=== PATIENT | female | born 1945 | race Caucasian/White ===

== ENCOUNTER 2018-07-10 09:17 | Emergency (ER) | payer MEDICARE, OTHER ==
[2018-07-10 09:23] VITALS: BP 161/87
[2018-07-10] MEDS ORDERED: Ketorolac 30 MG/ML SDV IM ONE (10:11)
--- NOTE | 2018-07-10 11:43 | EDM.PDOC ---
ED HPI GENERAL MEDICAL PROBLEM - General Chief Complaint: Lower Extremity Injury/Pain Stated Complaint: right hip pain Time Seen by Provider: 07/10/18 10:02 Source of Information: Reports: Patient, Family History Limitations: Reports: No Limitations - History of Present Illness INITIAL COMMENTS - FREE TEXT/NARRATIVE: Villa is a 73 year old female who presents ambulatory to the ED with c/o right hip pain. She reports that starting last night, after rising from her chair, she has had worsening hip pain. She reports she had trouble standing up straight. She reports she initially thought it was her lower back, but as the night went on pain has localized more to her right hip. She does report she put ice on it through the night and this seemed to help some. Reports upon awakening this morning she had trouble walking on her right hip, prompting her ED presentation. She reports she did have lumbar fusion about 3-4 months ago. Has been doing well with that. SHe denies any numbness or tingling. Pain does radiate some to her low back. Rates pain 8/10. She reports she has taken ibuprofen, which did not help. Denies any loss of bowel or bladder control. Denies any injury to the area. 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 Right Hip Pain Score (Numeric/FACES): 8 - Related Data Allergies Allergy/AdvReac Type Severity Reaction Status Date / Time nickel Allergy Cannot Verified 07/10/18 09:18 Remember Penicillins Allergy Swelling Verified 07/10/18 09:18 Sulfa (Sulfonamide Allergy Syncope Verified 07/10/18 09:18 Antibiotics) Home Meds: Home Meds Levothyroxine [Synthroid] 50 mcg PO ACBRK 10/06/13 [History] DULoxetine [Cymbalta] 60 mg PO DAILY 08/14/15 [History] Acetaminophen/HYDROcodone [Hyde 325-5 MG] 1 - 2 tab PO Q6H #15 tablet 07/10/18 [Rx] Meloxicam 15 mg PO BEDTIME 07/10/18 [History] Past Medical History HEENT History: Reports: Cataract, Impaired Vision Cardiovascular History: Reports: High Cholesterol Other Gastrointestinal History: Woo's esophagus Endocrine/Metabolic History: Reports: Hypothyroidism - Past Surgical History HEENT Surgical History: Reports: Cataract Surgery GI Surgical History: Reports: Colonoscopy, Tavia Fundoplication Female Surgical History: Reports: Hysterectomy Neurological Surgical History: Reports: Laminectomy Musculoskeletal Surgical History: Reports: Other (See Below) Other Musculoskeletal Surgeries/Procedures:: back surgery Social & Family History - Family History Family Medical History: Noncontributory - Tobacco Use Smoking Status *Q: Former Smoker Used Tobacco, but Quit: Yes Month/Year Tobacco Last Used: 2011 - Caffeine Use Caffeine Use: Reports: Coffee - Recreational Drug Use Recreational Drug Use: No Review of Systems - Review of Systems Review Of Systems: ROS reveals no pertinent complaints other than HPI. ED EXAM, GENERAL - Physical Exam Exam: See Below Exam Limited By: No Limitations General Appearance: Alert, WD/WN, No Apparent Distress Eye Exam: Bilateral Eye: PERRL Peripheral Pulses: 2+: Dorsalis Pedis (L), Dorsalis Pedis (R) GI/Abdominal: Normal Bowel Sounds, Soft, Non-Tender, No Organomegaly, No Distention, No Abnormal Bruit, No Mass Back Exam: Normal Inspection, Full Range of Motion, Paraspinal Tenderness (L3-5) . No: Vertebral Tenderness Extremities: Normal Inspection, Normal Range of Motion, No Pedal Edema, Normal Capillary Refill, Leg Pain, Other (tenderness to right SI, lateral right hip, L3 -5). No: Joint Swelling, Maricarmen's Sign, Increased Warmth Neurological: Alert, Oriented, CN II-XII Intact, Normal Cognition, Normal Gait, No Motor/Sensory Deficits Psychiatric: Normal Affect, Normal Mood Skin Exam: Warm, Dry, Intact, Normal Color, No Rash. No: Ecchymosis Course - Vital Signs Last Recorded V/S: Last Vital Signs Temp 96.7 F 07/10/18 09:20 Pulse 74 07/10/18 09:20 Resp 18 07/10/18 09:20 BP 161/87 H 07/10/18 09:20 Pulse Ox 97 07/10/18 09:20 - Orders/Labs/Meds Meds: Medications Discontinued Medications Generic Name Dose Route Start Last Admin Trade Name Freq PRN Reason Stop Dose Admin Ketorolac Tromethamine 30 mg 07/10/18 10:11 07/10/18 10:31 Toradol IM 07/10/18 10:12 30 mg ONETIME ONE Administration - Re-Assessments/Exams Free Text/Narrative Re-Assessment/Exam: Patient reports improvement of right hip pain to a 4/10 after Toradol. Does have full ROM to right hip and low back. Discussed Xray findings with patient. Does have osteoarthritis of bilateral hips. Hardware to lumbar spine appears intact per my review. No obvious fracture or dislocation. Departure - Departure Time of Disposition: 11:41 Disposition: Home, Self-Care 01 Condition: Good Clinical Impression: Degenerative disc disease, lumbar Osteoarthritis of hip Qualifiers: Osteoarthritis type: unspecified Laterality: bilateral Qualified Code(s): M16.0 - Bilateral primary osteoarthritis of hip - Discharge Information *PRESCRIPTION DRUG MONITORING PROGRAM REVIEWED*: Yes *COPY OF PRESCRIPTION DRUG MONITORING REPORT IN PATIENT ANGELIQUE: Not Applicable Prescriptions: Acetaminophen/HYDROcodone [Hyde 325-5 MG] 1 - 2 tab PO Q6H #15 tablet Referrals: Coleen Vega PA [Primary Care Provider] - Forms: ED Department Discharge Additional Instructions: Hyde 1-2 tablets every 6 hours as needed for pain Ice/heat to affected area as needed for comfort Activity as tolerated Follow up with PCP this week if pain worsens or does not improve Will notify patient of final radiology read, once available.
== END 2018-07-10 11:52 | disposition home or self-care (01) ==
LOC: CC.ED 09:17
DX: M51.36 Other intervertebral disc degeneration, lumbar region (principal); M16.0 Bilateral primary osteoarthritis of hip; E03.9 Hypothyroidism, unspecified; Z88.0 Allergy status to penicillin; Z88.2 Allergy status to sulfonamides; Z88.8 Allergy status to other drugs, medicaments and biological substances; Z79.899 Other long term (current) drug therapy; Z87.891 Personal history of nicotine dependence
CPT/HCPCS: 72100; 73502; 96372; 99283; J1885

== ENCOUNTER 2019-05-16 00:51 | Inpatient (IN) | payer MEDICARE, OTHER ==
[2019-05-16] MEDS ORDERED: Albuterol/Ipratropium 3.0-0.5 MG/3 ML Neb Soln NEB ONE ×2 (00:55→01:23)
[2019-05-16] MEDS ORDERED: methylPREDNISolone Sodium Succinate 125 MG/2 ML SDV IVPUSH STA (01:21)
--- NOTE | 2019-05-16 01:26 | EDM.PDOC ---
ED HPI GENERAL MEDICAL PROBLEM - General Chief Complaint: Respiratory Problem Stated Complaint: SOB, cough Time Seen by Provider: 05/16/19 01:20 Source of Information: Reports: Patient History Limitations: Reports: No Limitations - History of Present Illness INITIAL COMMENTS - FREE TEXT/NARRATIVE: This patient is a 74 year old female that presents to the ER. Patient reports that started yesterday morning with runny nose, congestion, drainage. She reports then about 5pm yesterday she started coughing and feeling tight in her chest. She reports as the evening/night progressed, her cough and tightness became much worse. She reports as it progressed and became worse she couldnt breath and came to the ER. Patient reports she is a smoker. Patient reports on the of this month having tonsilitis and seen by her PCP. She reports she was seen by her PCP and prescribed abx, she did not complete them, but improved. Onset Date: 05/15/19 Duration: Hour(s): (24) Severity: Moderate Improves with: Reports: None Worsens with: Reports: None Associated Symptoms: Reports: Cough, cough w sputum, Shortness of Breath. Denies: Confusion, Chest Pain, Diaphoresis, Fever/Chills, Headaches, Loss of Appetite, Malaise, Nausea/Vomiting, Rash, Seizure, Syncope Sternum Pain Score (Numeric/FACES): 4 - Related Data Allergies Allergy/AdvReac Type Severity Reaction Status Date / Time nickel Allergy Cannot Verified 05/16/19 01:09 Remember Penicillins Allergy Swelling Verified 05/16/19 01:09 Sulfa (Sulfonamide Allergy Syncope Verified 05/16/19 01:09 Antibiotics) Home Meds: Home Meds Levothyroxine [Synthroid] 50 mcg PO ACBRK 10/06/13 [History] DULoxetine [Cymbalta] 60 mg PO DAILY 08/14/15 [History] Esomeprazole Magnesium [Nexium] 1 cap PO DAILY 05/16/19 [History] Past Medical History HEENT History: Reports: Cataract, Impaired Vision Cardiovascular History: Reports: High Cholesterol Other Gastrointestinal History: Woo's esophagus Endocrine/Metabolic History: Reports: Hypothyroidism - Past Surgical History HEENT Surgical History: Reports: Cataract Surgery GI Surgical History: Reports: Colonoscopy, Tavia Fundoplication Female Surgical History: Reports: Hysterectomy Neurological Surgical History: Reports: Laminectomy Musculoskeletal Surgical History: Reports: Other (See Below) Other Musculoskeletal Surgeries/Procedures:: back surgery Social & Family History - Family History Family Medical History: Noncontributory - Tobacco Use Smoking Status *Q: Current Every Day Smoker Years of Tobacco use: 40 Packs/Tins Daily: 0.5 - Caffeine Use Caffeine Use: Reports: Coffee - Recreational Drug Use Recreational Drug Use: No ED ROS GENERAL - Review of Systems Review Of Systems: See Below Constitutional: Reports: No Symptoms HEENT: Reports: Rhinitis, Sinus Problem Respiratory: Reports: Shortness of Breath, Wheezing, Pleuritic Chest Pain, Cough , Sputum Cardiovascular: Reports: No Symptoms. Denies: Edema, Lightheadedness, Palpitations, Syncope Endocrine: Reports: No Symptoms GI/Abdominal: Reports: No Symptoms : Reports: No Symptoms Musculoskeletal: Reports: No Symptoms Skin: Reports: No Symptoms Neurological: Reports: No Symptoms Psychiatric: Reports: No Symptoms Hematologic/Lymphatic: Reports: No Symptoms Immunologic: Reports: No Symptoms ED EXAM, GENERAL - Physical Exam Exam: See Below Exam Limited By: No Limitations General Appearance: Alert, WD/WN, No Apparent Distress, Anxious Eye Exam: Bilateral Eye: Normal Inspection, PERRL Ears: Normal External Exam, Normal Canal, Hearing Grossly Normal, Normal TMs Ear Exam: Bilateral Ear: Auricle Normal, Canal Normal, TM normal Nose: Normal Inspection, Normal Mucosa, No Blood Throat/Mouth: Normal Inspection, Normal Lips, Normal Teeth, Normal Gums, Normal Oropharynx, Normal Voice, No Airway Compromise Head: Atraumatic, Normocephalic Neck: Normal Inspection, Supple, Non-Tender, Full Range of Motion Respiratory/Chest: No Respiratory Distress, No Accessory Muscle Use, Chest Non- Tender, Decreased Breath Sounds (throughout due to tightness. ), Wheezing (very tight throughout. ). No: Stridor, Accessory Muscle Use, Retractions Cardiovascular: Normal Peripheral Pulses, Regular Rate, Rhythm, No Edema, No Gallop, No JVD, No Murmur, No Rub Peripheral Pulses: 2+: Radial (L), Radial (R), Posterior Tibial (L), Posterior Tibial (R) GI/Abdominal: Soft, Non-Tender, No Organomegaly, No Distention, No Mass, Pelvis Stable (Female) Exam: Deferred Rectal (Female) Exam: Deferred Back Exam: Normal Inspection, Full Range of Motion Extremities: Normal Inspection, Normal Range of Motion, Non-Tender, No Pedal Edema, Normal Capillary Refill Neurological: Alert, Oriented, Normal Cognition, Normal Gait, No Motor/Sensory Deficits Psychiatric: Normal Affect, Normal Mood Skin Exam: Warm, Dry, Intact, Normal Color, No Rash Lymphatic: No Adenopathy Course - Vital Signs Last Recorded V/S: Last Vital Signs Temp 96.0 F 05/16/19 00:52 Pulse 96 05/16/19 00:52 Resp 20 05/16/19 00:52 BP 159/76 H 05/16/19 00:52 Pulse Ox 94 L 05/16/19 00:52 - Orders/Labs/Meds Orders: Active Orders 24 hr Category Date Time Status Patient Status Manage Transfer [TRANSFER] Routine ADT 05/16/19 02:06 Ordered RT Aerosol Therapy [RC] ASDIRECTED Care 05/16/19 00:55 Active RT Aerosol Therapy [RC] ASDIRECTED Care 05/16/19 01:23 Active Chest 2V [CR] Stat Exams 05/16/19 01:21 Taken CULTURE BLOOD [BC] Stat Lab 05/16/19 01:21 Received CULTURE BLOOD [BC] Stat Lab 05/16/19 01:59 Received Azithromycin [Zithromax] 500 mg Med 05/16/19 01:59 Active Sodium Chloride 0.9% [Normal Saline] 250 ml IV NOW Blood Culture x2 Reflex Set [OM.PC] Stat Oth 05/16/19 01:21 Ordered Resuscitation Status Routine Resus Stat 05/16/19 02:07 Ordered Medication Orders Azithromycin 500 mg/ Sodium (Chloride) 250 mls @ 250 mls/hr IV NOW STA Stop: 05/16/19 02:58 Last Admin: 05/16/19 02:13 Dose: 250 mls/hr Labs: Laboratory Tests 05/16/19 05/16/19 05/16/19 Range/Units 01:21 01:21 01:59 WBC 14.7 H (5.0-10.0) 10^3/uL RBC 4.68 (4.00-5.50) 10^6/uL Hgb 15.6 (12.0-16.0) g/dL Hct 45.4 (37.0-47.0) % MCV 97.0 H (82.0-94.0) fL MCH 33.3 H (27.0-32.0) pg MCHC 34.4 (33.0-38.0) g/dL RDW Coeff of Lindsey 13.3 (11.0-15.0) % Plt Count 219 (150-400) 10^3/uL Neut % (Auto) 76.2 (35-85) % Lymph % (Auto) 17.7 (10-55) % [place] % (Auto) 4.8 (0-16) % Eos % (Auto) 1.2 (0-5) % Baso % (Auto) 0.1 (0-3) % Neut # (Auto) 11.19 H (1.80-7.00) 10^3/uL Lymph # (Auto) 2.60 (1.00-4.80) 10^3/uL [place] # (Auto) 0.70 (0.00-0.80) 10^3/uL Eos # (Auto) 0.17 (0.00-0.45) 10^3/uL Baso # (Auto) 0.01 10^3/uL Sodium 143 (136-145) mEq/L Potassium 3.7 (3.5-5.0) mEq/L Chloride 104 (98-106) mEq/L Carbon Dioxide 29 (21-32) mmol/L BUN 22 H (7-18) mg/dL Creatinine 1.1 H (0.6-1.0) mg/dL Est Cr Clr Drug Dosing 32.72 mL/min Estimated GFR (MDRD) 49 L (>=60) mL/min Glucose 125 H D (75-99) mg/dL Lactic Acid 1.8 (0.4-2.0) mmol/L Calcium 9.2 (8.4-10.1) mg/dL Total Bilirubin 0.4 (0.0-1.0) mg/dL AST 12 L (15-37) U/L ALT 11 L (12-78) U/L Alkaline Phosphatase 94 (46-116) U/L C-Reactive Protein 1.5 H (0.2-0.8) mg/dL NT-Pro-B Natriuret Pep 174 (0-1000) pg/mL Total Protein 7.2 (6.4-8.2) g/dL Albumin 3.8 (3.4-5.0) g/dL Meds: Medications Generic Name Dose Route Start Last Admin Trade Name Qiana PRN Reason Stop Dose Admin Azithromycin 500 mg/ Sodium 250 mls @ 250 mls/hr 05/16/19 01:59 05/16/19 02: 13 Chloride IV 05/16/19 02:58 250 mls/hr NOW STA Administration Discontinued Medications Generic Name Dose Route Start Last Admin Trade Name Qiana PRN Reason Stop Dose Admin Albuterol/Ipratropium 3 ml 05/16/19 00:55 05/16/19 00:59 Duoneb 3.0-0.5 Mg/3 Ml NEB 05/16/19 00:56 3 ml ONETIME ONE Administration Albuterol/Ipratropium 3 ml 05/16/19 01:23 05/16/19 01:29 Duoneb 3.0-0.5 Mg/3 Ml NEB 05/16/19 01:24 3 ml ONETIME ONE Administration Ceftriaxone Sodium 1 gm 05/16/19 01:58 05/16/19 02:12 Rocephin IVPUSH 05/16/19 01:59 1 gm ONETIME ONE Administration Methylprednisolone Sodium Succinate 125 mg 05/16/19 01:21 05/16/19 01:28 Solu-Medrol IVPUSH 05/16/19 01:22 125 mg NOW STA Administration - Re-Assessments/Exams Free Text/Narrative Re-Assessment/Exam: 05/16/19 01:31 Patient after 1st breathing treatment still very tight, oxygen saturation 90% RA. Departure - Departure Time of Disposition: 02:12 Disposition: Admitted As Inpatient 67 Condition: Fair Clinical Impression: Hypoxia, Mild renal insufficiency Acute bronchitis Qualifiers: Bronchitis organism: unspecified organism Qualified Code(s): J20.9 - Acute bronchitis, unspecified - Discharge Information *PRESCRIPTION DRUG MONITORING PROGRAM REVIEWED*: Not Applicable *COPY OF PRESCRIPTION DRUG MONITORING REPORT IN PATIENT ANGELIQUE: Not Applicable Referrals: Coleen Vega PA [Primary Care Provider] - Forms: ED Department Discharge - My Orders Last 24 Hours: My Active Orders 05/16/19 00:55 RT Aerosol Therapy [RC] ASDIRECTED 05/16/19 01:21 Chest 2V [CR] Stat CULTURE BLOOD [BC] Stat Blood Culture x2 Reflex Set [OM.PC] Stat 05/16/19 01:23 RT Aerosol Therapy [RC] ASDIRECTED 05/16/19 01:59 CULTURE BLOOD [BC] Stat Azithromycin [Zithromax] 500 mg Sodium Chloride 0.9% [Normal Saline] 250 ml IV NOW 05/16/19 02:06 Patient Status Manage Transfer [TRANSFER] Routine 05/16/19 02:07 Resuscitation Status Routine - Assessment/Plan Last 24 Hours: My Active Orders 05/16/19 00:55 RT Aerosol Therapy [RC] ASDIRECTED 05/16/19 01:21 Chest 2V [CR] Stat CULTURE BLOOD [BC] Stat Blood Culture x2 Reflex Set [OM.PC] Stat 05/16/19 01:23 RT Aerosol Therapy [RC] ASDIRECTED 05/16/19 01:59 CULTURE BLOOD [BC] Stat Azithromycin [Zithromax] 500 mg Sodium Chloride 0.9% [Normal Saline] 250 ml IV NOW 05/16/19 02:06 Patient Status Manage Transfer [TRANSFER] Routine 05/16/19 02:07 Resuscitation Status Routine Plan: PLEASE SEE RN NOTE FOR PFSH. PLEASE USE ER H&P ADMIT H&P
[2019-05-16] MEDS ORDERED: cefTRIAXone 1 GM Vial IVPUSH ONE (01:58)
[2019-05-16] MEDS ORDERED: Azithromycin 500 MG in Sodium Chloride 0.9% 250 ML IV STA (01:59)
[2019-05-16] MEDS ORDERED: Albuterol/Ipratropium 3.0-0.5 MG/3 ML Neb Soln NEB PRN (02:48)
[2019-05-16] MEDS ORDERED: Acetaminophen 325 MG Tab PO PRN (02:48)
[2019-05-16] MEDS ORDERED: Ibuprofen 200 MG Tab PO PRN (02:48)
[2019-05-16] MEDS ORDERED: Acetaminophen/HYDROcodone 325-5 MG Tab PO PRN (02:48)
[2019-05-16] MEDS ORDERED: Morphine 2 MG/ML Syringe IVPUSH PRN (02:48)
[2019-05-16] MEDS ORDERED: Docusate Sodium 100 MG Cap PO PRN (02:48)
[2019-05-16] MEDS ORDERED: Ondansetron 4 MG/2 ML SDV IV PRN (02:48)
[2019-05-16] MEDS: Levothyroxine 50 MCG Tab PO SCH (08:50)
[2019-05-16] MEDS: Pantoprazole 40 MG Tab.CR PO SCH (08:50)
[2019-05-16] MEDS: Albuterol/Ipratropium 3.0-0.5 MG/3 ML Neb Soln NEB SCH ×4 (08:51→20:18)
[2019-05-16] MEDS: DULoxetine 30 MG Cap PO SCH (08:51)
[2019-05-16] MEDS: Nicotine 21 MG/24 Hr Patch TRDERM SCH (10:35)
[2019-05-16] MEDS: methylPREDNISolone Sodium Succinate 125 MG/2 ML SDV IVPUSH SCH (12:23)
[2019-05-16] MEDS: cefTRIAXone 1 GM Vial IVPUSH SCH (20:18)
[2019-05-16] MEDS: Azithromycin 500 MG in Sodium Chloride 0.9% 250 ML IV SCH (20:18)
[2019-05-17] MEDS: methylPREDNISolone Sodium Succinate 125 MG/2 ML SDV IVPUSH SCH ×3 (00:17→23:01)
[2019-05-17] MEDS: Levothyroxine 50 MCG Tab PO SCH (06:20)
[2019-05-17] MEDS: DULoxetine 30 MG Cap PO SCH (07:53)
[2019-05-17] MEDS: Pantoprazole 40 MG Tab.CR PO SCH (07:53)
[2019-05-17] MEDS ORDERED: Temazepam 15 MG Cap PO PRN (08:55)
[2019-05-17] MEDS: Nicotine 21 MG/24 Hr Patch TRDERM SCH (09:03)
[2019-05-17] MEDS: Levalbuterol HCl 1.25 MG/3 ML Neb NEB SCH ×4 (09:03→19:48)
[2019-05-17] MEDS: Albuterol/Ipratropium 3.0-0.5 MG/3 ML Neb Soln NEB SCH (09:04)
--- NOTE | 2019-05-17 11:13 | PCM.PN ---
- General Info Date of Service: 05/17/19 Admission Dx/Problem (Free Text): Acute Bronchitis with bronchospasm Functional Status: Reports: Pain Controlled, Tolerating Diet, Ambulating - Review of Systems General: Reports: Weakness, Fatigue. Denies: Fever HEENT: Reports: Sinus Congestion. Denies: Ear Pain, Sore Throat Pulmonary: Reports: Shortness of Breath, Cough, Sputum, Wheezing Cardiovascular: Reports: Lightheadedness. Denies: Chest Pain, Edema Gastrointestinal: Denies: Abdominal Pain, Nausea, Vomiting Genitourinary: Reports: No Symptoms Musculoskeletal: Reports: No Symptoms Skin: Reports: No Symptoms Neurological: Reports: No Symptoms - Patient Data Vitals - Most Recent: Last Vital Signs Temp 99.2 F 05/17/19 00:00 Pulse 79 05/17/19 04:00 Resp 16 05/17/19 04:00 BP 117/50 L 05/17/19 00:00 Pulse Ox 95 05/17/19 00:00 Weight - Most Recent: 152 lb Lab Results Last 24 Hours: Laboratory Results - last 24 hr 05/17/19 05/17/19 Range/Units 07:00 07:00 WBC 21.2 H* (5.0-10.0) 10^3/uL RBC 4.10 (4.00-5.50) 10^6/uL Hgb 13.6 (12.0-16.0) g/dL Hct 39.9 (37.0-47.0) % MCV 97.3 H (82.0-94.0) fL MCH 33.2 H (27.0-32.0) pg MCHC 34.1 (33.0-38.0) g/dL RDW Coeff of Lindsey 13.6 (11.0-15.0) % Plt Count 192 (150-400) 10^3/uL Add Manual Diff Yes Neutrophils % (Manual) 91 H (35-85) % Band Neutrophils % 5 (0-5) % Lymphocytes % (Manual) 4 L (21-55) % Absolute Neutrophils 20.35 H (1.80-7.00) 10^3/uL Lymphocytes # (Manual) 0.85 L (1.00-4.80) 10^3/uL Sodium 142 (136-145) mEq/L Potassium 4.5 D (3.5-5.0) mEq/L Chloride 108 H (98-106) mEq/L Carbon Dioxide 24 (21-32) mmol/L BUN 25 H (7-18) mg/dL Creatinine 1.0 (0.6-1.0) mg/dL Est Cr Clr Drug Dosing 37.81 mL/min Estimated GFR (MDRD) 54 L (>=60) mL/min Glucose 137 H (75-99) mg/dL Calcium 8.9 (8.4-10.1) mg/dL C-Reactive Protein 3.3 H (0.2-0.8) mg/dL [place] Results Last 24 Hours: Microbiology 05/16/19 05:00 Gram Stain - Final Sputum - Expectorated Sputum Culture - Preliminary 05/16/19 01:59 Aerobic Blood Culture - Preliminary Blood - Venous NO GROWTH AFTER 1 DAY Anaerobic Blood Culture - Preliminary NO GROWTH AFTER 1 DAY 05/16/19 01:59 Aerobic Blood Culture - Preliminary Blood - Venous - Lab Draw NO GROWTH AFTER 1 DAY Anaerobic Blood Culture - Preliminary NO GROWTH AFTER 1 DAY 05/16/19 05:00 Influenza Type A Antigen Screen - Final Nasal, Unspecified NEGATIVE INFLUENZA A VIRUS AG REFERENCE RANGE: NEGATIVE Influenza Type B Antigen Screen - Final NEGATIVE INFLUENZA B VIRUS AG REFERENCE RANGE: NEGATIVE Med Orders - Current: Current Medications Acetaminophen (Tylenol) 650 mg PO Q4H PRN PRN Reason: Pain (Mild 1-3)/fever Hydrocodone Bitart/Acetaminophen (Hannah 325-5 Mg) 2 tab PO Q4H PRN PRN Reason: Pain (moderate 4-6) Albuterol/Ipratropium (Duoneb 3.0-0.5 Mg/3 Ml) 3 ml NEB Q4H PRN PRN Reason: Shortness Of Breath/wheezing Ceftriaxone Sodium (Rocephin) 1 gm IVPUSH Q24H [facility] Last Admin: 05/16/19 20:18 Dose: 1 gm Docusate Sodium (Colace) 100 mg PO BID PRN PRN Reason: Constipation Duloxetine HCl (Cymbalta) 60 mg PO DAILY [facility] Last Admin: 05/17/19 07:53 Dose: 60 mg Azithromycin 500 mg/ Sodium (Chloride) 250 mls @ 250 mls/hr IV Q24H [facility] Last Admin: 05/16/19 20:18 Dose: 250 mls/hr Ibuprofen (Motrin) 600 mg PO Q6H PRN PRN Reason: Pain (mild 1-3) Levalbuterol HCl (Xopenex) 1.25 mg NEB QID [facility] Last Admin: 05/17/19 09:03 Dose: 1.25 mg Levothyroxine Sodium (Synthroid) 50 mcg PO ACBRK [facility] Last Admin: 05/17/19 06:20 Dose: 50 mcg Methylprednisolone Sodium Succinate (Solu-Medrol) 125 mg IVPUSH Q12H [facility] Last Admin: 05/17/19 00:17 Dose: 125 mg Morphine Sulfate (Morphine) 2 mg IVPUSH Q2H PRN PRN Reason: Pain (severe 7-10) Nicotine (Habitrol) 21 mg TRDERM DAILY [facility] Last Admin: 05/17/19 09:03 Dose: Not Given Ondansetron HCl (Zofran) 4 mg IV Q6H PRN PRN Reason: Nausea/Vomiting Pantoprazole Sodium (Protonix) 40 mg PO DAILY [facility] Last Admin: 05/17/19 07:53 Dose: 40 mg Temazepam (Restoril) 15 mg PO BEDTIME PRN PRN Reason: Insomnia Discontinued Medications Albuterol/Ipratropium (Duoneb 3.0-0.5 Mg/3 Ml) 3 ml NEB ONETIME ONE Stop: 05/16/19 00:56 Last Admin: 05/16/19 00:59 Dose: 3 ml Albuterol/Ipratropium (Duoneb 3.0-0.5 Mg/3 Ml) 3 ml NEB ONETIME ONE Stop: 05/16/19 01:24 Last Admin: 05/16/19 01:29 Dose: 3 ml Albuterol/Ipratropium (Duoneb 3.0-0.5 Mg/3 Ml) 3 ml NEB QIDRT [facility] Last Admin: 05/17/19 09:04 Dose: Not Given Ceftriaxone Sodium (Rocephin) 1 gm IVPUSH ONETIME ONE Stop: 05/16/19 01:59 Last Admin: 05/16/19 02:12 Dose: 1 gm Azithromycin 500 mg/ Sodium (Chloride) 250 mls @ 250 mls/hr IV NOW STA Stop: 05/16/19 02:58 Last Admin: 05/16/19 02:13 Dose: 250 mls/hr Methylprednisolone Sodium Succinate (Solu-Medrol) 125 mg IVPUSH NOW STA Stop: 05/16/19 01:22 Last Admin: 05/16/19 01:28 Dose: 125 mg - Exam General: Alert, Oriented HEENT: Mucous Membr. Moist/[place] Neck: Supple Lungs: Decreased Breath Sounds, Wheezing Cardiovascular: Regular Rhythm, Tachycardia GI/Abdominal Exam: Normal Bowel Sounds, Soft, Non-Tender Extremities: Normal Inspection, No Pedal Edema Skin: Warm, Dry Neurological: No New Focal Deficit - Problem List & Annotations (1) Acute bronchitis SNOMED Code(s): 97223365 Code(s): J20.9 - ACUTE BRONCHITIS, UNSPECIFIED Status: Acute Priority: High Current Visit: Yes Qualifiers: Bronchitis organism: unspecified organism Qualified Code(s): J20.9 - Acute bronchitis, unspecified - Problem List Review Problem List Initiated/Reviewed/Updated: Yes - My Orders Last 24 Hours: My Active Orders 05/17/19 08:53 Levalbuterol HCl [Xopenex] 1.25 mg NEB QID 05/17/19 08:55 Temazepam [Restoril] 15 mg PO BEDTIME PRN - Assessment Assessment:: Acute Bronchitis with bronchospasm - Plan Plan:: Patient more dyspneic this am. Had just been up to the shower, feels worsens symptoms. Still coughing, short of breath. Audible wheezing noted. Has not been sleeping well due to meds and "hospital setting". She did get tachycardic and lightheaded, felt unsteady after DuoNeb last evening. Heart rate noted in the 120s. Patient feels cough is loosening, more productive today. WBC this am 21.2 with 5% bands, increased neutrophils. CRP 3.3. Lung sounds noted to have diffuse wheezing, rhonchi scattered throughout. Will continue with IV antibiotics and steroids, do not feel appropriate yet for discharge. Switch duonebs to Xopenex. Add Restoril for sleep. Repeat labs in am and evaluate discharge potential at that time.
[2019-05-17] MEDS: cefTRIAXone 1 GM Vial IVPUSH SCH (19:49)
[2019-05-17] MEDS: Azithromycin 500 MG in Sodium Chloride 0.9% 250 ML IV SCH (19:49)
[2019-05-18] MEDS: Levothyroxine 50 MCG Tab PO SCH (06:15)
[2019-05-18] MEDS: Pantoprazole 40 MG Tab.CR PO SCH (07:59)
[2019-05-18] MEDS: Levalbuterol HCl 1.25 MG/3 ML Neb NEB SCH ×2 (07:59→11:57)
[2019-05-18] MEDS: DULoxetine 30 MG Cap PO SCH (07:59)
[2019-05-18] MEDS: Nicotine 21 MG/24 Hr Patch TRDERM SCH (08:00)
--- NOTE | 2019-05-18 08:55 | PCM.DCSUM1 ---
Discharge Summary - Hospital Course HPI Initial Comments: Villa is a 74 year old female who was admitted to the hospital on 05/16/2019 with acute bronchitis with bronchospasm and COPD exacerbation. She was treated with IV antibiotics and steroids, as well as nebulizers. Was initially on Duonebs, but did develop tachycardia and lightheadedness, so was switched to Xopenex. Throughout hospital stay, patients shortness of breath and wheezing improved. She was able to be up ambulatory in halls without significant shortness of breath. She continued to have productive cough. Was anxious to discharge home. Labs did improve throughout stay. WBC was 14.7 on admit, did increase to 21.2, and then back down to 16.7. CRP was 1.5 on admit, 3.3 on day 1, and down to 1.2 on day of discharge. Sputum culture was negative. Blood cultures and influenza both negative as well. VS remained stable on RA throughout stay. Patient was afebrile. She will be discharged home on continued nebulizers, antibiotics and prednisone. Is advised to follow up with her PCP for recheck next week. - Discharge Data Discharge Date: 05/18/19 Discharge Disposition: Home, Self-Care 01 Condition: Good - Referral to Home Health Primary Care Physician: CEZAR Salmon - Discharge Diagnosis/Problem(s) (1) Acute bronchitis SNOMED Code(s): 32307933 ICD Code: J20.9 - ACUTE BRONCHITIS, UNSPECIFIED Status: Acute Priority: High Qualifiers: Bronchitis organism: unspecified organism Qualified Code(s): J20.9 - Acute bronchitis, unspecified (2) COPD exacerbation SNOMED Code(s): 872830335 ICD Code: J44.1 - CHRONIC OBSTRUCTIVE PULMONARY DISEASE W (ACUTE) EXACERBATION Status: Acute - Patient Instructions Diet: Usual Diet as Tolerated Activity: As Tolerated, Cough & Deep Breathe Notify Provider of: Fever - Discharge Plan *PRESCRIPTION DRUG MONITORING PROGRAM REVIEWED*: Not Applicable *COPY OF PRESCRIPTION DRUG MONITORING REPORT IN PATIENT ANGELIQUE: Not Applicable Prescriptions/Med Rec: Azithromycin [Zithromax] 250 mg PO DAILY 5 Days #6 tab Levalbuterol HCl [Xopenex] 1 ampule NEB Q6H PRN #30 neb PRN Reason: Shortness Of Breath predniSONE 40 mg PO WITHBREAKFAST 5 Days #10 tab Home Medications: Home Meds Levothyroxine [Synthroid] 50 mcg PO ACBRK 10/06/13 [History] DULoxetine [Cymbalta] 60 mg PO DAILY 08/14/15 [History] Esomeprazole Magnesium [Nexium] 1 cap PO DAILY 05/16/19 [History] Azithromycin [Zithromax] 250 mg PO DAILY 5 Days #6 tab 05/18/19 [Rx] Levalbuterol HCl [Xopenex] 1 ampule NEB Q6H PRN #30 neb 05/18/19 [Rx] predniSONE 40 mg PO WITHBREAKFAST 5 Days #10 tab 05/18/19 [Rx] Patient Handouts: Acute Bronchitis, Adult Forms: ED Department Discharge Referrals: Coleen Vega PA [Primary Care Provider] - - Discharge Summary/Plan Comment DC Time >30 min.: No - General Info Date of Service: 06/17/19 Admission Dx/Problem (Free Text: Acute Bronchitis with bronchospasm COPD Exacerbation Functional Status: Reports: Pain Controlled, Tolerating Diet, Ambulating, Urinating. Denies: New Symptoms - Review of Systems General: Denies: Fever, Weakness, Fatigue, Chills Pulmonary: Reports: Shortness of Breath, Cough, Sputum, Wheezing Cardiovascular: Reports: Dyspnea on Exertion. Denies: Chest Pain, Edema, Lightheadedness Gastrointestinal: Reports: No Symptoms Genitourinary: Reports: No Symptoms Musculoskeletal: Reports: No Symptoms Skin: Reports: No Symptoms Neurological: Reports: No Symptoms Psychiatric: Reports: No Symptoms - Patient Data Vitals - Most Recent: Last Vital Signs Temp 97.7 F 05/18/19 04:00 Pulse 83 05/18/19 04:00 Resp 16 05/18/19 04:00 BP 133/60 05/18/19 04:00 Pulse Ox 95 05/18/19 04:00 Weight - Most Recent: 152 lb Lab Results - Last 24 hrs: Laboratory Results - last 24 hr 05/18/19 05/18/19 Range/Units 07:00 07:00 WBC 16.7 H (5.0-10.0) 10^3/uL RBC 4.08 (4.00-5.50) 10^6/uL Hgb 13.6 (12.0-16.0) g/dL Hct 40.1 (37.0-47.0) % MCV 98.3 H (82.0-94.0) fL MCH 33.3 H (27.0-32.0) pg MCHC 33.9 (33.0-38.0) g/dL RDW Coeff of Lindsey 14.1 (11.0-15.0) % Plt Count 189 (150-400) 10^3/uL Add Manual Diff Yes Neutrophils % (Manual) 92 H (35-85) % Band Neutrophils % 3 (0-5) % Lymphocytes % (Manual) 5 L (21-55) % Absolute Neutrophils 15.87 H (1.80-7.00) 10^3/uL Lymphocytes # (Manual) 0.84 L (1.00-4.80) 10^3/uL Platelet Estimate Adequate (ADEQUATE) Macrocytosis 1+ slight H (NOT SEEN) Sodium 141 (136-145) mEq/L Potassium 4.5 (3.5-5.0) mEq/L Chloride 107 H (98-106) mEq/L Carbon Dioxide 25 (21-32) mmol/L BUN 25 H (7-18) mg/dL Creatinine 1.0 (0.6-1.0) mg/dL Est Cr Clr Drug Dosing 37.81 mL/min Estimated GFR (MDRD) 54 L (>=60) mL/min Glucose 125 H (75-99) mg/dL Calcium 9.1 (8.4-10.1) mg/dL C-Reactive Protein 1.2 H (0.2-0.8) mg/dL [facility] Results - Last 24 hrs: Microbiology 05/16/19 01:59 Aerobic Blood Culture - Preliminary Blood - Venous NO GROWTH AFTER 2 DAYS Anaerobic Blood Culture - Preliminary NO GROWTH AFTER 2 DAYS 05/16/19 01:59 Aerobic Blood Culture - Preliminary Blood - Venous - Lab Draw NO GROWTH AFTER 2 DAYS Anaerobic Blood Culture - Preliminary NO GROWTH AFTER 2 DAYS 05/16/19 05:00 Gram Stain - Final Sputum - Expectorated Sputum Culture - Preliminary Med Orders - Current: Current Medications Acetaminophen (Tylenol) 650 mg PO Q4H PRN PRN Reason: Pain (Mild 1-3)/fever Hydrocodone Bitart/Acetaminophen ([place] 325-5 Mg) 2 tab PO Q4H PRN PRN Reason: Pain (moderate 4-6) Albuterol/Ipratropium (Duoneb 3.0-0.5 Mg/3 Ml) 3 ml NEB Q4H PRN PRN Reason: Shortness Of Breath/wheezing Ceftriaxone Sodium (Rocephin) 1 gm IVPUSH Q24H [facility] Last Admin: 05/17/19 19:49 Dose: 1 gm Docusate Sodium (Colace) 100 mg PO BID PRN PRN Reason: Constipation Duloxetine HCl (Cymbalta) 60 mg PO DAILY [facility] Last Admin: 05/18/19 07:59 Dose: 60 mg Azithromycin 500 mg/ Sodium (Chloride) 250 mls @ 250 mls/hr IV Q24H [facility] Last Admin: 05/17/19 19:49 Dose: 250 mls/hr Ibuprofen (Motrin) 600 mg PO Q6H PRN PRN Reason: Pain (mild 1-3) Levalbuterol HCl (Xopenex) 1.25 mg NEB QID [facility] Last Admin: 05/18/19 07:59 Dose: 1.25 mg Levothyroxine Sodium (Synthroid) 50 mcg PO ACBRK [facility] Last Admin: 05/18/19 06:15 Dose: 50 mcg Methylprednisolone Sodium Succinate (Solu-Medrol) 125 mg IVPUSH Q12H [facility] Last Admin: 05/17/19 23:01 Dose: 125 mg Morphine Sulfate (Morphine) 2 mg IVPUSH Q2H PRN PRN Reason: Pain (severe 7-10) Nicotine (Habitrol) 21 mg TRDERM DAILY [facility] Last Admin: 05/18/19 08:00 Dose: Not Given Ondansetron HCl (Zofran) 4 mg IV Q6H PRN PRN Reason: Nausea/Vomiting Pantoprazole Sodium (Protonix) 40 mg PO DAILY [facility] Last Admin: 05/18/19 07:59 Dose: 40 mg Temazepam (Restoril) 15 mg PO BEDTIME PRN PRN Reason: Insomnia Last Admin: 05/17/19 23:01 Dose: 15 mg Discontinued Medications Albuterol/Ipratropium (Duoneb 3.0-0.5 Mg/3 Ml) 3 ml NEB ONETIME ONE Stop: 05/16/19 00:56 Last Admin: 05/16/19 00:59 Dose: 3 ml Albuterol/Ipratropium (Duoneb 3.0-0.5 Mg/3 Ml) 3 ml NEB ONETIME ONE Stop: 05/16/19 01:24 Last Admin: 05/16/19 01:29 Dose: 3 ml Albuterol/Ipratropium (Duoneb 3.0-0.5 Mg/3 Ml) 3 ml NEB QIDRT [facility] Last Admin: 05/17/19 09:04 Dose: Not Given Ceftriaxone Sodium (Rocephin) 1 gm IVPUSH ONETIME ONE Stop: 05/16/19 01:59 Last Admin: 05/16/19 02:12 Dose: 1 gm Azithromycin 500 mg/ Sodium (Chloride) 250 mls @ 250 mls/hr IV NOW STA Stop: 05/16/19 02:58 Last Admin: 05/16/19 02:13 Dose: 250 mls/hr Methylprednisolone Sodium Succinate (Solu-Medrol) 125 mg IVPUSH NOW STA Stop: 05/16/19 01:22 Last Admin: 05/16/19 01:28 Dose: 125 mg - Exam Quality Assessment: Reports: DVT Prophylaxis. Denies: Supplemental Oxygen General: Reports: Alert, Oriented, No Acute Distress Neck: Reports: Supple Lungs: Reports: Rhonchi (scattered throughout), Wheezing (expiratory) Cardiovascular: Reports: Regular Rate, Regular Rhythm, No Murmurs GI/Abdominal Exam: Normal Bowel Sounds, Soft, Non-Tender, No Organomegaly, No Distention, No Abnormal Bruit, No Mass, Pelvis Stable Extremities: Normal Inspection, Normal Range of Motion, Non-Tender, No Pedal Edema, Normal Capillary Refill Neurological: Reports: No New Focal Deficit Psy/Mental Status: Reports: Alert, Normal Affect, Normal Mood
[2019-05-18] MEDS: methylPREDNISolone Sodium Succinate 125 MG/2 ML SDV IVPUSH SCH (11:52)
[2019-05-18 14:18] VITALS: BP 144/69; PULSE 93
== END 2019-05-18 12:30 | disposition home or self-care (01) | DRG 203 ==
LOC: CC.ED 00:51 → CC.MS 02:07 → UNDOADMIN 02:12 → CC.MS 02:12 → CC.ED 02:15 → CC.MS 02:48
PROVIDERS: ADMIT Nurse Practitioner; ATTEND Family Medicine
DX: J20.9 Acute bronchitis, unspecified (principal); R09.02 Hypoxemia; R06.02 Shortness of breath; R05 Cough; F17.200 Nicotine dependence, unspecified, uncomplicated; H54.7 Unspecified visual loss; F17.210 Nicotine dependence, cigarettes, uncomplicated; E03.9 Hypothyroidism, unspecified; E78.00 Pure hypercholesterolemia, unspecified; Z88.0 Allergy status to penicillin; Z88.2 Allergy status to sulfonamides; Z79.52 Long term (current) use of systemic steroids; Z79.890 Hormone replacement therapy; Z79.899 Other long term (current) drug therapy; Z98.49 Cataract extraction status, unspecified eye
CPT/HCPCS: 36415; 71046; 80048; 80053; 83605; 83880; 85025; 86140; 87040; 87070; 87205; 87804; 93005; 94640; 96365; 96375; 99285-25; A9270-GY; J0456; J0696; J2930; J7050; J7612-GY; J7620-GY

== ENCOUNTER 2020-01-11 00:45 | Emergency (ER) | payer MEDICARE, OTHER ==
[2020-01-11] MEDS: Aspirin 81 MG Tab.Chew PO ONE ×2 (00:47→06:55)
[2020-01-11] MEDS: Nitroglycerin 0.4 MG Tab.SL SL ONE (00:55)
[2020-01-11 01:07] LABS: CHLORIDE,CL 103 mEq/L (98-106); SODIUM,NA 140 mEq/L (136-145)
[2020-01-11] MEDS: Lactated Ringers 1,000 ML IV SCH (01:10)
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
[2020-01-11] MEDS: Pantoprazole 40 MG Vial IVPUSH SCH (02:10)
[2020-01-11 06:33] VITALS: BP 133/66; PULSE 68
[2020-01-11] MEDS: Nitroglycerin 2% Oint 1 GM UD Packet TOP ONE (06:53)
[2020-01-11] MEDS: Heparin Sodium/D5W 25,000 UNITS/500 ML BAG IV SCH (07:15)
[2020-01-11] MEDS: Heparin Sodium 10,000 Units/1 ML MDV IVPUSH ONE (07:27)
== END 2020-01-11 08:15 ==
LOC: CC.ED 00:45
DX: I21.4 Non-ST elevation (NSTEMI) myocardial infarction (principal); E03.9 Hypothyroidism, unspecified; Z79.899 Other long term (current) drug therapy; Z88.0 Allergy status to penicillin; Z88.8 Allergy status to other drugs, medicaments and biological substances; Z88.2 Allergy status to sulfonamides; Z91.09 Other allergy status, other than to drugs and biological substances
CPT/HCPCS: 36415; 71046; 80053; 82550; 83615; 83690; 84484; 85025; 85610; 85730; 93010; 96361; 96365; 96375; 99284; 99285-25; A9270-GY; C9113; J1644; J7120

== ENCOUNTER 2021-11-16 09:10 | Emergency (ER) | payer MEDICARE, OTHER ==
[2021-11-16] MEDS ORDERED: Aspirin 81 MG Tab.Chew PO ONE (09:28)
[2021-11-16 09:47] LABS: CHLORIDE,CL 105 mEq/L (98-106); SODIUM,NA 143 mEq/L (136-145)
[2021-11-16 14:47] VITALS: BP 130/68; PULSE 75
== END 2021-11-16 13:30 | disposition home or self-care (01) ==
LOC: CC.ED 09:10
DX: I20.9 Angina pectoris, unspecified (principal); E78.00 Pure hypercholesterolemia, unspecified; I25.2 Old myocardial infarction; E03.9 Hypothyroidism, unspecified; Z91.048 Other nonmedicinal substance allergy status; Z88.0 Allergy status to penicillin; Z88.2 Allergy status to sulfonamides; Z79.899 Other long term (current) drug therapy; Z79.02 Long term (current) use of antithrombotics/antiplatelets
CPT/HCPCS: 36415; 71045; 80053; 82550; 83615; 83735; 84484; 85025; 85610; 93005; 99284; 99285-25; A9270-GY

== ENCOUNTER 2023-07-06 15:58 | Observation (INO) | payer MEDICARE, OTHER ==
[2023-07-06 16:12] LABS: BASOPHILS ABSOLUTE AUTO 0.03 10^3/uL (0.00-0.50); BASOPHILS PERCENT AUTO 0.3 % (0-1); EOSINOPHILS ABSOLUTE AUTO 0.18 10^3/uL (0.00-1.50); EOSINOPHILS PERCENT AUTO 1.9 % (0-6); HEMATOCRIT 42.3 % (37.0-47.0); HEMOGLOBIN 14.5 g/dL (12.0-16.0); IMMATURE GRAN ABSOLUTE AUTO 0.04 10^3/uL (0.00-0.49); IMMATURE GRAN PERCENT AUTO 0.4 % (0.0-4.9); LYMPHOCYTES ABSOLUTE AUTO 2.11 10^3/uL (0.60-5.00); LYMPHOCYTES PERCENT AUTO 22.3 % (24-44); MEAN CORPUSCULAR HEMOGLOBIN 32.4 pg (27.0-32.0); MEAN CORPUSCULAR HGB CONC 34.3 g/dL (32.0-36.0); MEAN CORPUSCULAR VOLUME 94.4 fL (83.0-97.0); MONOCYTES ABSOLUTE AUTO 0.58 10^3/uL (0.00-1.50); MONOCYTES PERCENT AUTO 6.1 % (0-10); NEUTROPHILS ABSOLUTE AUTO 6.54 x10^3/uL (1.80-8.00); PLATELET COUNT,PLT 221 10^3/uL (150-400); RED BLOOD CELL COUNT 4.48 x10^6/uL (4.00-5.50); WHITE BLOOD CELL COUNT,WBC 9.5 10^3/uL (4.0-11.0)
[2023-07-06 16:26] LABS: ALANINE AMINOTRANSFERASE,ALT 13 U/L (12-78); ALBUMIN 3.6 g/dL (3.4-5.0); ALKALINE PHOSPHATASE 74 U/L (46-116); ASPARTATE AMNIOTRANSFERASE,AST 16 U/L (15-37); BILIRUBIN TOTAL 0.4 mg/dL (0.0-1.0); BLOOD UREA NITROGEN,BUN 12 mg/dL (7-18); C-REACTIVE PROTEIN 6.11 mg/dL (<=0.30); CALCIUM 9.4 mg/dL (8.4-10.1); CARBON DIOXIDE,CO2 25 mmol/L (21-32); CHLORIDE,CL 102 mEq/L (98-106); CREATININE 1.2 mg/dL (0.6-1.0); GLUCOSE RANDOM 103 mg/dL (75-99); LIPASE 25 U/L (16-77); POTASSIUM,K 3.8 mEq/L (3.5-5.0); PROTEIN TOTAL,TP 7.3 g/dL (6.4-8.2); SODIUM,NA 137 mEq/L (136-145)
[2023-07-06 16:27] LABS: ESTIMATED GFR 47 mL/min (>=60)
[2023-07-06] MEDS ORDERED: Sodium Chloride 0.9% 1,000 ML IV ONE (17:34)
[2023-07-06] MEDS ORDERED: Acetaminophen 325 MG Tab PO PRN (18:18)
[2023-07-06] MEDS ORDERED: Ondansetron 4 MG Tab.DIS PO PRN (18:18)
[2023-07-06] MEDS ORDERED: Ondansetron 4 MG/2 ML SDV IV PRN (18:18)
[2023-07-06] MEDS ORDERED: Sodium Chloride 0.9% 10 ML Syringe FLUSH PRN (18:18)
[2023-07-06] MEDS ORDERED: Sodium Chloride 0.9% 1,000 ML IV SCH (18:45)
[2023-07-06] MEDS ORDERED: Albuterol 6.7 GM Inhaler INH PRN (21:47)
[2023-07-07] MEDS ORDERED: Levothyroxine 50 MCG Tab PO SCH (07:00)
[2023-07-07] MEDS ORDERED: Pantoprazole 40 MG Tab.CR PO SCH (07:00)
[2023-07-07 07:13] LABS: BASOPHILS ABSOLUTE AUTO 0.04 10^3/uL (0.00-0.50); BASOPHILS PERCENT AUTO 0.6 % (0-1); EOSINOPHILS PERCENT AUTO 3.1 % (0-6); HEMATOCRIT 38.4 % (37.0-47.0); HEMOGLOBIN 13.2 g/dL (12.0-16.0); IMMATURE GRAN ABSOLUTE AUTO 0.03 10^3/uL (0.00-0.49); IMMATURE GRAN PERCENT AUTO 0.5 % (0.0-4.9); LYMPHOCYTES ABSOLUTE AUTO 1.87 10^3/uL (0.60-5.00); LYMPHOCYTES PERCENT AUTO 28.7 % (24-44); MEAN CORPUSCULAR HEMOGLOBIN 32.8 pg (27.0-32.0); MEAN CORPUSCULAR HGB CONC 34.4 g/dL (32.0-36.0); MEAN CORPUSCULAR VOLUME 95.3 fL (83.0-97.0); MONOCYTES ABSOLUTE AUTO 0.47 10^3/uL (0.00-1.50); MONOCYTES PERCENT AUTO 7.2 % (0-10); NEUTROPHILS PERCENT AUTO 59.9 % (41-71); PLATELET COUNT,PLT 190 10^3/uL (150-400); RED BLOOD CELL COUNT 4.03 x10^6/uL (4.00-5.50); WHITE BLOOD CELL COUNT,WBC 6.5 10^3/uL (4.0-11.0)
[2023-07-07 07:49] LABS: ALBUMIN 2.8 g/dL (3.4-5.0); BILIRUBIN TOTAL 0.4 mg/dL (0.0-1.0); C-REACTIVE PROTEIN 3.5 mg/dL (<=0.30); CALCIUM 8.2 mg/dL (8.4-10.1); EST CRCL DRUG DOSING (CG) 35.55 mL/min; POTASSIUM,K 3.8 mEq/L (3.5-5.0); PROTEIN TOTAL,TP 5.8 g/dL (6.4-8.2)
[2023-07-07] MEDS ORDERED: Formoterol/Mometasone 200-5 MCG 8.8 GM Inhaler IH SCH (08:00)
[2023-07-07] MEDS ORDERED: Isosorbide Mononitrate 60 MG Tab.ER PO SCH (08:00)
[2023-07-07] MEDS ORDERED: DULoxetine 30 MG Cap PO SCH (08:00)
[2023-07-07] MEDS ORDERED: Non-Formulary Medication 1 Each (Budesonide/Formoterol [Symbicort 160-4.5 Mcg Inhaler (6 G INH SCH (08:00)
[2023-07-07] MEDS ORDERED: Aspirin 81 MG Tab.EC PO SCH (08:00)
[2023-07-07 08:29] LABS: APPEARANCE,URINE CLEAR (CLEAR); BILIRUBIN,URINE NEGATIVE (NEGATIVE); COLOR,URINE YELLOW (YELLOW); GLUCOSE,URINE NEGATIVE (NEGATIVE); KETONES,URINE NEGATIVE (NEGATIVE); LEUKOCYTE ESTERASE,URINE TRACE (NEGATIVE); NITRITE,URINE NEGATIVE (NEGATIVE); OCCULT BLOOD,URINE NEGATIVE (NEGATIVE); PH,URINE 5.5 (4.5-8.0); PROTEIN,URINE NEGATIVE (NEGATIVE); UROBILINOGEN,URINE 0.2 EU/dL (0.2-1.0)
[2023-07-07 09:03] LABS: BACTERIA,URINE NOT SEEN /HPF (NOT SEEN); EPITHELIAL CELLS,URINE OCCASIONAL /HPF (NOT SEEN); MUCUS,URINE NOT SEEN /HPF (NOT SEEN); RBC,URINE NOT SEEN /HPF (0-5)
[2023-07-07 11:35] VITALS: BP 125/55; PULSE 61
[2023-07-07] MEDS ORDERED: Enoxaparin 40 MG/0.4 ML Syringe SUBCUT SCH (12:00)
== END 2023-07-07 11:23 | disposition home or self-care (01) ==
LOC: CC.FCMC 15:58 → CC.MS 15:58 → UNDOADMOB 17:00 → CC.MS 18:11
PROVIDERS: ADMIT Nurse Practitioner Family; ATTEND Nurse Practitioner Family
DX: R10.84 Generalized abdominal pain (principal); R19.7 Diarrhea, unspecified; R63.0 Anorexia; E78.00 Pure hypercholesterolemia, unspecified; Z88.0 Allergy status to penicillin; Z88.2 Allergy status to sulfonamides; Z88.8 Allergy status to other drugs, medicaments and biological substances; Z79.890 Hormone replacement therapy; Z79.82 Long term (current) use of aspirin; Z79.899 Other long term (current) drug therapy
CPT/HCPCS: 36415; 74019; 80053; 81001; 81003; 83690; 85025; 86140; 96360; A9270-GY; G0378; J7030

== ENCOUNTER 2023-08-16 10:28 | Emergency (ER) | payer MEDICARE, OTHER ==
[2023-08-16] MEDS ORDERED: Albuterol/Ipratropium 3.0-0.5 MG/3 ML Neb Soln NEB ONE (10:45)
[2023-08-16] MEDS ORDERED: Magnesium Sulfate/Water 2 GM in Premix Bag 1 BAG IV ONE (10:46)
[2023-08-16] MEDS ORDERED: methylPREDNISolone Sodium Succinate 125 MG/2 ML SDV IVPUSH ONE (10:47)
[2023-08-16 10:52] VITALS: BP 145/75; PULSE 100
[2023-08-16] MEDS ORDERED: Oseltamivir 75 MG Cap PO SCH (11:00)
[2023-08-16] MEDS ORDERED: Oseltamivir 30 MG Cap PO ONE (11:29)
[2023-08-16] MEDS ORDERED: Take Home: predniSONE 20 MG, 2 Tab Pack PO ONE (11:30)
[2023-08-16 11:47] LABS: BASOPHILS ABSOLUTE AUTO 0.02 10^3/uL (0.00-0.50); BASOPHILS PERCENT AUTO 0.2 % (0-1); EOSINOPHILS ABSOLUTE AUTO 0.01 10^3/uL (0.00-1.50); EOSINOPHILS PERCENT AUTO 0.1 % (0-6); HEMATOCRIT 45.6 % (37.0-47.0); HEMOGLOBIN 15.3 g/dL (12.0-16.0); IMMATURE GRAN PERCENT AUTO 1.8 % (0.0-4.9); LYMPHOCYTES ABSOLUTE AUTO 0.83 10^3/uL (0.60-5.00); LYMPHOCYTES PERCENT AUTO 6.5 % (24-44); MEAN CORPUSCULAR HEMOGLOBIN 32.6 pg (27.0-32.0); MEAN CORPUSCULAR HGB CONC 33.6 g/dL (32.0-36.0); MONOCYTES PERCENT AUTO 6.2 % (0-10); NEUTROPHILS ABSOLUTE AUTO 10.93 x10^3/uL (1.80-8.00); NEUTROPHILS PERCENT AUTO 85.2 % (41-71); PLATELET COUNT,PLT 193 10^3/uL (150-400); WHITE BLOOD CELL COUNT,WBC 12.8 10^3/uL (4.0-11.0)
[2023-08-16 11:48] LABS: IMMATURE GRAN ABSOLUTE AUTO 0.23 10^3/uL (0.00-0.49)
[2023-08-16 11:49] LABS: ALBUMIN 3.6 g/dL (3.4-5.0); BILIRUBIN TOTAL 0.5 mg/dL (0.0-1.0); C-REACTIVE PROTEIN 9.5 mg/dL (<=0.50); CALCIUM 8.9 mg/dL (8.4-10.1); CREATININE 1.2 mg/dL (0.6-1.0); EST CRCL DRUG DOSING (CG) 29.63 mL/min; MAGNESIUM 1.9 mg/dL (1.8-2.4); POTASSIUM,K 4.4 mEq/L (3.5-5.0); PROTEIN TOTAL,TP 7.1 g/dL (6.4-8.2)
== END 2023-08-16 11:45 | disposition home or self-care (01) ==
LOC: CC.ED 10:28
DX: J44.9 Chronic obstructive pulmonary disease, unspecified (principal); J12.9 Viral pneumonia, unspecified; J10.1 Influenza due to other identified influenza virus with other respiratory manifestations; Z88.0 Allergy status to penicillin; Z88.2 Allergy status to sulfonamides; Z20.822 Contact with and (suspected) exposure to COVID-19
CPT/HCPCS: 36415; 71045; 80053; 83735; 84484; 85025; 86140; 87804; 93005; 93010; 94640; 96365; 96375; 99284; 99285; A9270; J2930; J3475; J7512; U0002; J7620-GY

== ENCOUNTER → 2023-08-16 | Emergency (ER) | payer MEDICARE, OTHER ==
[~2023-08-16] MED LIST: Albuterol/Ipratropium 3.0-0.5 MG/3 ML Neb Soln NEB ONE; Magnesium Sulfate/Water 2 GM in Premix Bag 1 BAG IV ONE; Oseltamivir 75 MG Cap PO SCH; methylPREDNISolone Sodium Succinate 125 MG/2 ML SDV IVPUSH STA
[2023-08-16 10:41] VITALS: BP 145/75; PULSE 109
== END | disposition home or self-care (01) ==
LOC: CC.ED 10:02 → MERGE 10:02
DX: J44.9 Chronic obstructive pulmonary disease, unspecified (principal); J10.1 Influenza due to other identified influenza virus with other respiratory manifestations; J12.9 Viral pneumonia, unspecified; Z20.822 Contact with and (suspected) exposure to COVID-19; Z88.0 Allergy status to penicillin; Z88.2 Allergy status to sulfonamides
CPT/HCPCS: 93010; 94640; 99284; 99284-25; J2930; J3475; J7620-GY